=== PATIENT | male | born 1965 | race Caucasian/White ===

== ENCOUNTER → 2016-12-27 | Day surgery (SDC) | payer BC ==
[~2016-12-27] MED LIST: AMLODIPINE BESYL5 MG PO
--- NOTE | ~2016-12-27 | OR ---
Unit #: [id number] #: [id number] Patient: BISHOP DE SANTIAGO [id number] [address] [address] [id number] O MR#: [id number] NAME: BISHOP DE SANTIAGO ROOM: Date of Procedure: 12/27/2016 Admission Date: 12/27/2016 Surgeon: Lucio Goncalves M.D. : 1965 Attending Physician: Lucio Goncalves M.D. Primary Care Physician: Diego Mccullough Jr., M.D. OPERATIVE REPORT PREOPERATIVE DIAGNOSIS Colorectal cancer screening in an average-risk patient. PROCEDURES PERFORMED Colonoscopy and biopsy. POSTOPERATIVE DIAGNOSES 1. Single sessile polyp in the proximal ascending colon. This was diminutive and was removed using cold biopsy forceps. 2. Rest of the examination up to cecum was normal. The quality of the prep was excellent. No diverticula or hemorrhoids were noted. RECOMMENDATIONS Follow up the results of polyp histology. If an adenoma, consider repeat colonoscopy in 5 years. SEDATION USED MAC. DESCRIPTION OF PROCEDURE Following detailed explanation of the potential risks and complications of a colonoscopy, namely perforation, bleeding, and complications related to sedation, the patient was brought to GI lab and laid in the left lateral decubitus position. A digital rectal examination was performed, which was normal. Lubricated tip of the Olympus video colonoscope was inserted through the anus and advanced under direct vision. The scope was advanced past the rectosigmoid into descending colon. No diverticula were noticed in this area. The scope tip was then navigated all the way up to cecum with visualization of the ileocecal valve and the appendiceal orifice. Preparation was excellent with good visualization and photodocumentation was obtained. Last several inches of terminal ileum also visualized after intubation of the ileocecal valve and appeared normal. Successive segments of the colonic mucosa were examined upon withdrawal. Single diminutive sessile polyp was noted in the proximal ascending colon. This was removed using cold biopsy forceps. It was retrieved and sent for histology. No additional polyps noted. The patient did not have any diverticulosis nor any hemorrhoids. He tolerated the procedure without any postprocedure complications. Dictated by... Lucio Goncalves M.D. Unit #: [id number] #: [id number] Patient: BISHOP DE SANTIAGO J AK/veto TD: 12/27/2016 08:31 JOB #: [id number] OPERATIVE REPORT Page 1 of 1 X Lucio Goncalves MD PROCEDURE OPERATIVE NOTE
== END | disposition home or self-care (01) ==
LOC: COPS 06:34
DX: Z12.11 Encounter for screening for malignant neoplasm of colon (principal); D12.2 Benign neoplasm of ascending colon; I10 Essential (primary) hypertension; F17.210 Nicotine dependence, cigarettes, uncomplicated; Z79.899 Other long term (current) drug therapy; Z98.890 Other specified postprocedural states
CPT/HCPCS: 88305; J2250